=== PATIENT | male | born 1950 | race Caucasian/White ===

== ENCOUNTER → 2016-07-15 | Outpatient (CLI) | payer MEDICARE, BC ==
--- NOTE | 2016-07-15 17:42 | RAD ---
EXAM DESCRIPTION: Shoulder,Right 2 or More Views CLINICAL HISTORY: 66 years,Male,RT SHOULDER PAIN M25.511 COMPARISON: None FINDINGS: The right shoulder demonstrates no evidence of fractures or dislocations or acute abnormalities. The acromial clavicular joint moderate hypertrophy. The included lung griffin are unremarkable. There is moderate lateral down sloping of the acromion with mild to moderate narrowing of the supraspinatus outlet. IMPRESSION: Moderate right shoulder AC joint arthritis. There is some lateral down sloping of the acromion narrowing the suprasellar space outlet which can lead to chronic rotator cuff injury. But no acute findings Electronically signed by: Ralph Villareal MD 07/15/2016 5:41 PM CDT
== END ==
LOC: RAD 09:00
PROVIDERS: ATTEND Orthopaedic Surgery
DX: M25.511 Pain in right shoulder (principal); M13.811 Other specified arthritis, right shoulder

== ENCOUNTER → 2017-01-18 | Outpatient (CLI) | payer MEDICARE, BC | END | disposition home or self-care (01) | LOC: GMAB 10:34 | PROVIDERS: ATTEND Family Medicine | DX: Z12.5 Encounter for screening for malignant neoplasm of prostate (principal); E29.9 Testicular dysfunction, unspecified; I10 Essential (primary) hypertension ==

== ENCOUNTER → 2018-01-22 | Outpatient (CLI) | payer MEDICARE, BC | LOC: GMAE 10:26 | PROVIDERS: ATTEND Family Medicine | DX: I10 Essential (primary) hypertension (principal); Z12.5 Encounter for screening for malignant neoplasm of prostate | CPT/HCPCS: 84443; G0103 ==

== ENCOUNTER → 2019-02-04 | Outpatient (CLI) | payer MEDICARE, BC | LOC: GMAE 11:53 | PROVIDERS: ATTEND Family Medicine | DX: E29.9 Testicular dysfunction, unspecified (principal); I10 Essential (primary) hypertension; E78.5 Hyperlipidemia, unspecified ==

== ENCOUNTER → 2020-02-06 | Outpatient (CLI) | payer MEDICARE, BC | LOC: GMAE 11:02 | PROVIDERS: ATTEND Family Medicine | DX: I10 Essential (primary) hypertension (principal); E78.5 Hyperlipidemia, unspecified ==

== ENCOUNTER → 2020-03-10 | Outpatient (CLI) | payer MEDICARE, BC ==
--- NOTE | 2020-03-10 13:39 | RAD ---
EXAM: Chest,2 Views CLINICAL HISTORY: COUGH COMPARISON STUDY: December 11, 2019 TECHNICAL: PA and lateral chest x-ray. FINDINGS: The lungs are clear. There is no infiltrate/consolidation. There is no sign of interstitial pulmonary edema. There is no pleural effusion. The heart is not enlarged. There are mild vascular calcifications within the aortic arc. There are degenerative changes of the thoracic spine. IMPRESSION: NEGATIVE ADULT CHEST X-RAY. Electronically signed by: Wade Granados MD 03/10/2020 1:[address] [facility]
== END ==
LOC: RESP 09:54
PROVIDERS: ATTEND Family Medicine
DX: R05 Cough (principal)

== ENCOUNTER → 2020-05-06 | Outpatient (CLI) | payer MEDICARE, BC ==
[~2020-05-06] MED LIST: ALBUTEROL SULFATE 2.5 MG/3 ML VIAL NEB ONE
== END ==
LOC: RESP 10:23
PROVIDERS: ATTEND Family Medicine
DX: R05 Cough (principal)